=== PATIENT | female | born 1990 | race African-American/Black ===

== ENCOUNTER 2023-07-14 06:41 | Emergency (ER) | payer MEDICAID ==
[~2023-07-14] VITALS: Ht 170.2 cm; Wt 123.0 kg
[2023-07-14 07:04] VITALS: O2SAT 100
[2023-07-14] MEDS ORDERED: ACETAMINOPHEN 325MG TABLET PO ONE (09:00)
[2023-07-14] MEDS: ACETAMINOPHEN 325MG TABLET PO NR (11:15)
[2023-07-14] MEDS ORDERED: BENZ200C52 MT (12:31)
[2023-07-14 12:54] VITALS: BP 154/107; PULSE 90; RESP 20; TEMP 98.2
== END 2023-07-14 13:00 | disposition home or self-care (01) ==
LOC: ER 06:41
DX: B34.9 Viral infection, unspecified (principal); Z20.822 Contact with and (suspected) exposure to COVID-19
CPT/HCPCS: 87426; 87804; 99283

== ENCOUNTER 2023-08-15 23:55 | Emergency (ER) | payer MEDICAID ==
[~2023-08-15] VITALS: Ht 160 cm; Wt 143.3 kg
[~2023-08-15 23:55] MED LIST: BENZ200C52 MT
[2023-08-16 00:46] VITALS: O2SAT 99
[2023-08-16] MEDS: ACETAMINOPHEN 325MG TABLET PO ONE (03:00)
[2023-08-16] MEDS: GUAIFENESIN 600MG ER TABLET PO ONE (03:00)
[2023-08-16] MEDS ORDERED: ACET-2708 MT (03:49)
[2023-08-16] MEDS ORDERED: ONDA4TAB50 MT (03:49)
[2023-08-16] MEDS ORDERED: GUAI600T26 MT (03:49)
[2023-08-16 04:04] VITALS: BP 142/76; PULSE 88; RESP 14; TEMP 97.3
== END 2023-08-16 04:06 | disposition home or self-care (01) ==
LOC: ER 23:55
DX: B34.9 Viral infection, unspecified (principal); Z20.822 Contact with and (suspected) exposure to COVID-19
CPT/HCPCS: 87426; 99283

== ENCOUNTER 2023-09-23 02:21 | Emergency (ER) | payer MEDICAID ==
[~2023-09-23] VITALS: Ht 167.6 cm; Wt 150.0 kg
[~2023-09-23 02:21] MED LIST changes: +ACET-2708 MT; +GUAI600T26 MT; +ONDA4TAB50 MT
[2023-09-23 02:40] VITALS: TEMP 98.1; O2SAT 99
[2023-09-23 04:07] LABS: BASOPHILS % 0.4 % (0.0-2.0); EOSINOPHILS % 1.4 % (0.0-5.0); HEMATOCRIT. 42.2 % (36.0-48.0); HEMOGLOBIN. 13.2 g/dL (12.0-16.0); LYMPHOCYTES % 37.6 % (20.0-50.0); MEAN CORPUSCULAR HEMOGLOBIN 20.5 pg (28.0-32.0); MEAN CORPUSCULAR HGB CONC 31.4 g/dL (31.0-37.0); MEAN CORPUSCULAR VOLUME 65.3 fL (81.0-99.0); MONOCYTES % 5.7 % (2.0-8.0); NEUTROPHILS % 54.9 % (40.0-76.0); PLATELET 223 x1000/uL (130-400); RED BLOOD CELL COUNT 6.47 mill/uL (4.2-5.4); RED CELL DISTRIBUTION WIDTH 17.8 % (11.6-14.6); WHITE BLOOD COUNT 7.7 x1000/uL (4.5-11.0)
[2023-09-23 04:15] LABS: DIFFERENTIAL COMMENT 1
[2023-09-23 04:16] LABS: CHLORIDE 107 mEq/L (98-107); POTASSIUM 3.5 mEq/L (3.5-5.1); SODIUM 139 mEq/L (136-145)
[2023-09-23 04:17] LABS: CALCIUM 9.5 mg/dL (8.7-10.4); CARBON DIOXIDE 25 mEq/L (21-32)
[2023-09-23 04:21] LABS: INR 0.9; PROTHROMBIN TIME 10.6 sec (9.6-11.0)
[2023-09-23 04:22] LABS: CREATININE 0.8 mg/dL (0.6-1.0); GLUCOSE 76 mg/dL (70-105); UREA NITROGEN BLOOD 8 mg/dL (9-23)
[2023-09-23 04:24] LABS: ALANINE AMINOTRANSFERASE 15 IU/L (10-49); ASPARTATE AMINOTRANSFERASE 17 IU/L (<34)
[2023-09-23 04:25] LABS: BILIRUBIN TOTAL 0.2 mg/dL (0.1-1.0)
[2023-09-23 04:29] LABS: TROPONIN I HIGH SENSITIVITY < 4 ng/L (3.0-34)
[2023-09-23 04:37] LABS: HCG SCREEN NEGATIVE
[2023-09-23 06:46] VITALS: BP 128/88; PULSE 86; RESP 21
== END 2023-09-23 06:46 | disposition home or self-care (01) ==
LOC: ER 02:26
DX: M79.89 Other specified soft tissue disorders (principal); I10 Essential (primary) hypertension
CPT/HCPCS: 36415; 71045; 80053; 84484; 84703; 85025; 93005; 99285